=== PATIENT | female | born 1965 | race Caucasian/White ===

== ENCOUNTER → 2021-03-19 15:35 | Outpatient (CLI) | payer OTHER, SELFPAY | PROVIDERS: PCP Internal Medicine; Visit Provider Family Medicine | DX: Z23 Encounter for immunization (principal) | CPT/HCPCS: 0004A; 91300 ==

== ENCOUNTER 2022-03-05 16:00 | Outpatient (RCR) | payer OTHER, SELFPAY ==
--- NOTE | 2022-02-06 08:56 | HP.PTEVAL ---
Patient's Visit Information HECTOR NATION is a 56 year old F referred to Physical Therapy by Dr. Aditya Boone DPM with a diagnosis of PLANTAR FASCITIS LEFT. Date of Evaluation: 02/06/22 Physical Therapist: Marlo Valdivia PT, Cert MDT, OCS - Visit Plan Frequency: 2-3x /Week Duration: 6 Weeks Plan: PT INTERVETIONS MANUAL THERAPY G-S/PLANTARFASCIA STM /HAWK TOOL , STRETCHING PLANTARFASCIA , FOAM ROLLER AND STRENGTHENING - Subjective This 56 y/o female presents to physical therapy with left plantar fasciitis. Patient has had condition has been for 8 months. Patient has seen printing supplies sales representative with shock wave therapy ,night splint and have over counter orthotics. Located medial calcaneal . Patient had x-rays -. Described sore and throbbing sharp. Aggravating factors extended standing/walking . Alleviating nothing. Patient denies paresthesia/tingling. Patient sleeping okay at night . Patient stand alot at work as [employer]. Patient goal no pain. VOCATION: [employer] at [employer] - Pain Left Ankle Pain Intensity (Out of 10): 2 Comment: CALCANEAL - Objective POSTURE: Pes Cavus. GAIT: reciprocal pattern shoe wear lateral heel. PALPATION: tender distal calf lateral> medial. NEURO: intact. AROM ANKLE: dorsiflexion 5 degrees, plantarflexion 65 degrees ,inversion 45 degrees ,eversion 10 degrees. MMT: anterior tibialis ,posterior tibialis, G-S ,dorsiflexion 4/5 - Balance/Special Test Scores Lower Extremity Functional Score: 56 - Goals Goal 1:: Patient to be I with HEP for foot/stretching Goal Time Frame: 4-6 Weeks Goal 2:: Patient to demonstrate 70% improvement with function and decrease pian Goal Time Frame: 4-6 Weeks Goal 3:: Patient to improve LFES score by 5-10 points to improve function Goal Time Frame: 4-6 Weeks Goal 4:: Patient to improve G-S WFL to be able to stand and walk extended with less symptoms Goal Time Frame: 4-6 Weeks - Rehabilitation Potential Physical Therapy Diagnosis: This patient has plantar fasciitis left foot with medial heel pain with tightness in calf pes cavus thus benefit from PT Rehabilitation Potential: Good - Anticipated Interventions Patient/Client Instruction: Educate patient on: Condition, Plan of Care For the Purpose of:: To decrease pain, To increase ROM, To improve nutrient delivery to tissue, To increase oxygenation perfusion, To improve muscle performance and motor function, To increase tolerance to activity/condition/position, To improve ability of physical actions for home/community/work/leisure, To improve health of tissue, To decrease soft tissue restriction, To increase flexibility/ROM Therapeutic Exercise to Include: Strength training, Balance training, Flexibilty training, Passive ROM, Active ROM Comment: G-S /PLANTARFACSIA For the Purpose of:: To decrease pain, To increase ROM, To improve nutrient delivery to tissue, To increase oxygenation perfusion, To improve gait and locomotor functions, To improve health of tissue, To decrease soft tissue restriction, To increase flexibility/ROM Manual Therapy Techniques to Include: Mobilization, Soft tissue mobilization, Other Comment: HAWK -G-S /CALF PLANTARFASCIA For the Purpose of:: To decrease pain, To increase ROM, To improve nutrient delivery to tissue, To increase oxygenation perfusion, To improve health of tissue, To decrease soft tissue restriction, To increase flexibility/ROM Thank you for the opportunity to evaluate your patient. For Medicare and Medicare HMO plans, please review the plan of care and approve it. It will need to be FAXED BACK to us at [phone] for Medicare purposes. For Medicare only, by signing this I certify the plan of care. Please let me know if there are questions or concerns regarding this plan of care. Physician Signature: Date:
--- NOTE | 2022-03-05 16:56 | HP.PTDCSUM ---
It has been my pleasure to treat HECTOR N[place] referred by Dr. Aditya Boone DPM, with the diagnosis of PLANTAR FASCITIS LEFT for a total of 9 visit(s). Discharge Date: 03/05/22 Please see the following information for a summary of their discharge status. Subjective: Doing better overall. Walking better. some tenderness medial calcaneal Left Ankle Pain Intensity (Out of 10): 0 % Improvement: 6 Objective/Function: POSTURE : pes cavus. NEURO: intact. MMT: grossly 5/5. AROM: ankle WNL. GAIT: reciprocal pattern Goal 1:: Patient to be I with HEP for foot/stretching Goal Progress: Goal Met Goal 2:: Patient to demonstrate 70% improvement with function and decrease pian Goal Progress: Goal Met Goal 3:: Patient to improve LFES score by 5-10 points to improve function Goal Progress: Goal Met Goal 4:: Patient to improve G-S WFL to be able to stand and walk extended with less symptoms Goal Progress: Goal Met Plan: D/C Discharge Comments: HEP If there are questions or concerns regarding this patient's physical therapy, please feel free to call me at [phone]. Thank you for the referral of this patient. Sincerely, Marlo Valdivia, PT, Cert MDT, OCS Balance/Gait/Functional tests - Balance/Special Test Scores Lower Extremity Functional Score: 72
== END 2022-03-05 19:00 | disposition home or self-care (01) ==
LOC: PT 16:00
PROVIDERS: PCP Internal Medicine; Referring Provider Student in an Organized Health Care Education/Training Program; Visit Provider Student in an Organized Health Care Education/Training Program
DX: M72.2 Plantar fascial fibromatosis (principal)
CPT/HCPCS: 97110; 97140; 97162